=== PATIENT | male | born 1965 | race Caucasian/White ===

== ENCOUNTER → 2017-07-26 | Outpatient (CLI) | payer OTHER | LOC: BMCIMAGING 10:51 | PROVIDERS: ATTEND Internal Medicine | DX: R05 Cough (principal); R53.83 Other fatigue ==

== ENCOUNTER 2018-02-09 16:39 | Emergency (ER) | payer SELFPAY ==
--- NOTE | 2018-02-09 16:50 | EDPHY ---
H & P Stated Complaint: LUQ/epigastric pain Time Seen by Provider: 02/09/18 16:50 HPI/ROS: CHIEF COMPLAINT: Left upper quadrant pain HISTORY OF PRESENT ILLNESS: The patient presents to the ED with a several day history of left upper quadrant pain which is worsened over the past day. The patient did report some heartburn earlier in the week. The patient exercises frequently without symptoms of chest pain or shortness of breath. The patient denies any asymmetric calf pain or swelling. He denies pleuritic chest pain. The patient reports his pain is been constant centered in the epigastrium and left upper quadrant. The patient denies any rash, fever or recent infectious symptoms. REVIEW OF SYSTEMS: A comprehensive 10 point review of systems is otherwise negative aside from elements mentioned in the history of present illness. Source: Patient Exam Limitations: No limitations - Personal History Current Tetanus/Diphtheria Vaccine: Yes - Medical/Surgical History Hx Asthma: No Hx Chronic Respiratory Disease: No Hx Diabetes: No Hx Cardiac Disease: No Hx Renal Disease: No Hx Cirrhosis: No Hx Alcoholism: No Other PMH: Denies - Social History Smoking Status: Never smoked - Physical Exam Exam: General Appearance: Alert, no distress Eyes: Pupils equal and round no pallor or injection ENT, Mouth: Mucous membranes moist Respiratory: There are no retractions, lungs are clear to auscultation Cardiovascular: Regular rate and rhythm Gastrointestinal: Abdomen is soft and nontender, no masses, bowel sounds normal Neurological: A&O, normal motor function, normal sensory exam, normal cranial nerves Skin: Warm and dry, no rashes Musculoskeletal: Neck is supple nontender Extremities: symmetrical, full range of motion Constitutional: Initial Vital Signs Temperature (C) 36.5 C 02/09/18 16:42 Heart Rate 58 L 02/09/18 16:42 Respiratory Rate 18 02/09/18 16:42 Blood Pressure 131/90 H 02/09/18 16:42 O2 Sat (%) 95 02/09/18 16:42 O2 Delivery Mode Room Air Allergies/Adverse Reactions: No Known Allergies Allergy (Unverified 02/09/18 16:44) Home Medications: Medication Instructions Recorded NK [No Known Home Meds] 02/09/18 Medical Decision Making - Diagnostics EKG Interpretation: EKG: Complete interpretation has been separately recorded in the [facility] archive. Summary impression: Sinus rhythm, rate 58, incomplete right bundle branch block Imaging Results: Imaging Impressions Chest X-Ray 02/09/18 16:56 Impression: Negative. ED Course/Re-evaluation: The patient presents the ED for evaluation of several days of epigastric pain and left upper quadrant pain. The patient's abdominal examination is benign upon arrival. The patient's CBC, serum chemistries, liver function tests and lipase are normal. The patient's EKG demonstrates no evidence of ischemia. His troponin is normal. Chest x-ray demonstrates no evidence of acute disease. D-dimer is negative which I feel adequately excludes pulmonary embolism in this low risk by Wells criteria patient. The patient was given a GI cocktail in the emergency department with some improvement of his symptoms. I do believe he is likely experiencing dyspepsia as the etiology of the symptoms. The patient will be advised to follow up with his primary care provider and begin ranitidine 150 mg twice daily. The patient has no risk factors for coronary artery disease in exercises frequently without chest pain or shortness of breath doubt ACS. Differential Diagnosis: Differential diagnosis considered includes peptic ulcer disease, pancreatitis, cholecystitis, acute coronary syndrome, pulmonary embolism, dyspepsia - Data Points Laboratory Results: Laboratory Results 02/09/18 16:57 02/09/18 16:57 02/09/18 02/09/18 02/09/18 16:57 16:57 16:57 WBC RBC Hgb Hct MCV MCH MCHC RDW Plt Count MPV Neut % (Auto) Lymph % (Auto) Brewster % (Auto) Eos % (Auto) Baso % (Auto) Nucleat RBC Rel Count Absolute Neuts (auto) Absolute Lymphs (auto) Absolute Monos (auto) Absolute Eos (auto) Absolute Basos (auto) Absolute Nucleated RBC Immature Gran % Immature Gran # D-Dimer 0.34 ug/mLFEU ug/mLFEU (0.00-0.50) Sodium 138 mEq/L mEq/L (135-145) Potassium 4.2 mEq/L mEq/L (3.3-5.0) Chloride 104 mEq/L mEq/L (97-110) Carbon Dioxide 24 mEq/l mEq/l (22-31) Anion Gap 10 mEq/L mEq/L (8-16) BUN 16 mg/dL mg/dL (7-23) Creatinine 1.0 mg/dL mg/dL (0.7-1.3) Estimated GFR > 60 Glucose 79 mg/dL mg/dL (70-100) Calcium 9.3 mg/dL mg/dL (8.5-10.4) Total Bilirubin 0.8 mg/dL mg/dL (0.1-1.4) Conjugated Bilirubin 0.3 mg/dL mg/dL (0.0-0.5) Unconjugated Bilirubin 0.5 mg/dL mg/dL (0.0-1.1) AST 27 IU/L IU/L (17-59) ALT 29 IU/L IU/L (21-72) Alkaline Phosphatase 96 IU/L IU/L (38-126) POC Troponin I 0.00 ng/mL ng/mL (0.00-0.08) Total Protein 8.2 g/dL g/dL (6.3-8.2) Albumin 4.7 g/dL g/dL (3.5-5.0) Lipase 106 IU/L IU/L (23-300) 02/09/18 16:57 WBC 10.01 10^3/uL H 10^3/uL (3.80-9.50) RBC 5.28 10^6/uL 10^6/uL (4.40-6.38) Hgb 16.6 g/dL g/dL (13.7-17.5) Hct 48.5 % % (40.0-51.0) MCV 91.9 fL fL (81.5-99.8) MCH 31.4 pg pg (27.9-34.1) MCHC 34.2 g/dL g/dL (32.4-36.7) RDW 12.8 % % (11.5-15.2) Plt Count 297 10^3/uL 10^3/uL (150-400) MPV 9.7 fL fL (8.7-11.7) Neut % (Auto) 70.3 % % (39.3-74.2) Lymph % (Auto) 21.0 % % (15.0-45.0) Brewster % (Auto) 5.7 % % (4.5-13.0) Eos % (Auto) 2.1 % % (0.6-7.6) Baso % (Auto) 0.5 % % (0.3-1.7) Nucleat RBC Rel Count 0.0 % % (0.0-0.2) Absolute Neuts (auto) 7.04 10^3/uL H 10^3/uL (1.70-6.50) Absolute Lymphs (auto) 2.10 10^3/uL 10^3/uL (1.00-3.00) Absolute Monos (auto) 0.57 10^3/uL 10^3/uL (0.30-0.80) Absolute Eos (auto) 0.21 10^3/uL 10^3/uL (0.03-0.40) Absolute Basos (auto) 0.05 10^3/uL 10^3/uL (0.02-0.10) Absolute Nucleated RBC 0.00 10^3/uL 10^3/uL (0-0.01) Immature Gran % 0.4 % % (0.0-1.1) Immature Gran # 0.04 10^3/uL 10^3/uL (0.00-0.10) D-Dimer Sodium Potassium Chloride Carbon Dioxide Anion Gap BUN Creatinine Estimated GFR Glucose Calcium Total Bilirubin Conjugated Bilirubin Unconjugated Bilirubin AST ALT Alkaline Phosphatase POC Troponin I Total Protein Albumin Lipase Medications Given: Discontinued Medications Al Hydroxide/Mg Hydroxide (Maalox Susp) 30 ml PO ONCE ONE Stop: 02/09/18 16:57 Last Admin: 02/09/18 17:09 Dose: 30 ml Hyoscyamine Sulfate (Levsin, Hyomax-Sl) 0.25 mg PO ONCE ONE Stop: 02/09/18 16:57 Last Admin: 02/09/18 17:09 Dose: 0.25 mg Lidocaine (Lidocaine 2% Viscous) 15 ml PO ONCE ONE Stop: 02/09/18 16:57 Last Admin: 18 17:09 Dose: 15 ml Point of Care Test Results: Chemistry 02/09/18 16:57 POC Troponin I 0.00 ng/mL ng/mL (0.00-0.08) Departure - Departure Disposition: Home, Routine, Self-Care Clinical Impression: Dyspepsia Condition: Good Instructions: Indigestion (ED) Additional Instructions: 1. I recommend beginning Maalox for your symptoms. 2. Take Zantac 150 mg twice daily for next 2 weeks. 3. Please return to the ED for markedly worsening symptoms, exertional pain, difficulty breathing or other concerns. 4. Please follow up with Dr. Hernandez for any ongoing mild symptoms. Referrals: Peterson Hernandez MD [Primary Care Provider] - As per Instructions
[2018-02-09] MEDS ORDERED: MAG HYDROX/AL HYDROX/SIMETH 30 ML UDCUP PO ONE (16:56)
[2018-02-09] MEDS ORDERED: LIDOCAINE 2% VISCOUS 15 ML UDCUP PO ONE (16:56)
[2018-02-09] MEDS ORDERED: HYOSCYAMINE SULFATE 0.125 MG TAB PO ONE (16:56)
[2018-02-09 17:22] LABS: PLATELET COUNT 297 10^3/uL (150-400)
--- NOTE | 2018-02-09 18:30 | CPEKG ---
Test Reason : OPEN Blood Pressure : / mmHG Vent. Rate : 058 BPM Atrial Rate : 057 BPM P-R Int : 156 ms QRS Dur : 117 ms QT Int : 432 ms P-R-T Axes : 061 061 051 degrees QTc Int : 425 ms Sinus rhythm Incomplete right bundle branch block Confirmed by Francisco Dumont ([id number]) on 02/09/2018 6:30:10 PM Referred By: Confirmed By:Francisco Dumont
[2018-02-09 18:58] VITALS: BP 141/85
== END 2018-02-09 18:58 | disposition home or self-care (01) ==
DX: R10.13 Epigastric pain (principal)
CPT/HCPCS: 84484-PO